=== PATIENT | female | born 1960 | race Caucasian/White ===

== ENCOUNTER 2017-11-22 22:09 | Emergency (ER) | payer OTHER ==
--- NOTE | 2017-11-22 22:32 | EDPHY ---
H & P Time Seen by Provider: 11/22/17 22:18 HPI/ROS: This patient presents with laceration and head injury. She is brought in by her female partner and reports that she drank 3 glasses of wine since over the past 6 hr and slipped on ice on the front stairs striking her head against the deck with a large laceration to the right frontal region with moderate bleeding. She reports localized pain from the incident but denies any other injuries. She denies feeling dazed. She denies any LOC and denies generalized headache. ROS: She felt well prior to the fall. No constitutional symptoms recently. Neuro: Again no LOC, denies being dazed, no numbness tingling or focal weakness. No confusion. However she is quite emotional since the fall. HEENT: She denies any facial injuries from the fall. Musculoskeletal: No midline neck or back pain Pulmonary: No chest wall pain or shortness of breath Cardiovascular: No lightheadedness or chest pain GI: No abdominal pain nausea or vomiting 10 point ROS is otherwise negative. Past Medical/Surgical History: Rheumatoid arthritis Smoking Status: Never smoked Physical Exam: Physical exam: Vital signs are normal General: Patient is anxious. HEENT: Patient has a large laceration approximately 10 cm long to the right frontal region with exposure of the calvarium and mild bleeding. No bony injury is evident to the exposed cranium. The skin is retracted exposing 3 cm or so bone. Nose atraumatic. Ears: Clear bilaterally with no hemotympanum. Oropharynx: No dental trauma or malocclusion. No intraoral lacerations. Eyes: Pupils are equal and reactive to light. Extraocular motions are intact. Optic fundi: Clear with no papilledema or hemorrhage. Neck: Trachea is midline with no stridor. The patient has no midline neck tenderness and retains a full range of motion without increase in pain. Lungs: Clear to auscultation bilaterally Cardiac: Regular rate and rhythm no murmur gallop or rub. Chest: Nontender. Abdomen: Soft nontender no organomegaly Back: Nontender Extremities: Atraumatic Neuro: GCS of 15. Cranial nerves II through XII intact. 2 out of 3 five- minute memory is intact. Cerebellar exam is normal as judged by symmetric rapid hand movements bilaterally. No pronator drift. No sensory or motor deficits are appreciated. The patient maintains symmetric 2+ patellar, biceps and brachioradialis DTRs bilaterally. Initial differential diagnosis: Minor head injury with laceration, cerebral contusion, concussion, alcohol intoxication, PTSD Allergies/Adverse Reactions: codeine Allergy (Intermediate, Verified 11/22/17 22:56) Unknown Home Medications: Medication Instructions Recorded Rituxan 11/22/17 Tramadol HCl 11/22/17 MDM/Departure - [facility] ED Course/Re-evaluation: This patient requested topical anesthesia prior to injection. Let solution was placed. 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 She does not wish to have any imaging or breathalyzer test despite our explaining that there is no charge for the breathalizer. At this point clinically, the patient has good finger to nose & and while angered, she does not seem grossly intoxicated. On her neuro exam, no papilledema, focal neuro findings, evidence of significant cervical injury or or other"red flag findings" other than her large laceration. She is also with a responsible adult life partner who drove her here and will accept responsibility for the patient's transport by private vehicle They wish to proceed to [facility] Emergency Department for further evaluation and treatment. - Depart Disposition: [facility] ER Clinical Impression: Forehead laceration Qualifiers: Encounter type: initial encounter Qualified Code(s): S01.81XA - Laceration without foreign body of other part of head, initial encounter Head injury Qualifiers: Encounter type: initial encounter Qualified Code(s): S09.90XA - Unspecified injury of head, initial encounter Condition: Good Instructions: Head Injury (ED) Additional Instructions: Diagnosis for laceration without injury Plan we recommended treatment here. You opted to go to [facility]. Please proceed directly to [facility] Emergency Department for further evaluation and treatment. Referrals: Patient,NotPresent [Primary Care Provider] - As per Instructions
[2017-11-22 23:01] VITALS: BP 155/100; PULSE 75; RESP 16; TEMP 99; O2SAT 95
== END 2017-11-22 23:00 | disposition left against medical advice (07) ==
LOC: CED 22:09
DX: S01.81XA Laceration without foreign body of other part of head, initial encounter (principal); W01.198A Fall on same level from slipping, tripping and stumbling with subsequent striking against other object, initial encounter